=== PATIENT | female | born 1990 ===

== ENCOUNTER → 2020-06-15 | Outpatient (CLI) | payer OTHER | LOC: SJCVCIMAG 06-07 08:49 | PROVIDERS: ATTEND Internal Medicine Cardiovascular Disease | DX: R53.83 Other fatigue (principal); R06.00 Dyspnea, unspecified; R20.0 Anesthesia of skin; R07.9 Chest pain, unspecified; I10 Essential (primary) hypertension; E78.5 Hyperlipidemia, unspecified; Z82.49 Family history of ischemic heart disease and other diseases of the circulatory system ==